=== PATIENT | male | born 1985 | race American Indian/Alaskan Native ===

== ENCOUNTER 2019-12-31 18:34 | Emergency (ER) | payer BC ==
[2019-12-31] MEDS ORDERED: methylPREDNISolone Sod Succinate 125 MG/2 ML INJ ONE (18:37)
[2019-12-31] MEDS ORDERED: EPINEPHrine 1 MG/10 ML SYRINGE ONE (18:38)
[2019-12-31] MEDS ORDERED: FAMOTIDINE 20 MG/2 ML INJ IV ONE ×2 (18:38→18:39)
[2019-12-31] MEDS ORDERED: EPINEPHrine/PF 1 MG/1 ML INJ ONE (18:38)
[2019-12-31] MEDS ORDERED: diphenhydrAMINE 50 MG/ML VIAL ONE (18:39)
[2019-12-31] MEDS ORDERED: EPINEPHrine/PF 1 MG/1 ML INJ SUB-Q ONE ×2 (18:39→19:21)
[2019-12-31] MEDS ORDERED: methylPREDNISolone Sod Succinate 125 MG/2 ML INJ IV ONE (18:39)
[2019-12-31] MEDS ORDERED: diphenhydrAMINE 50 MG/ML VIAL IV ONE (18:39)
--- NOTE | 2019-12-31 18:41 | Emergency Department Report ---
ED General Adult HPI - General Chief complaint: Allergic Reaction Stated complaint: ALLERGIC REACTION PUI?: No Time Seen by Provider: 12/31/19 18:39 Source: patient, RN notes reviewed Mode of arrival: Ambulatory Limitations: No Limitations - History of Present Illness Initial comments: The patient was evaluated in the emergency department for symptoms described in the history of present illness. He/she was evaluated in the context of the global COVID-19 pandemic, which necessitated consideration that the patient might be at risk for infection with the virus that causes COVID-19. Institutional protocols and algorithms that pertain to the evaluation of patients at risk for COVID-19 are in a state of rapid change based on information released by regulatory bodies including the CDC and federal and state organizations. These policies and algorithms were followed during the patient's care in the emergency department. Please note that these policies, procedures and recommendations changed on a rapid basis. Chief complaint: "My tongue is swollen." Mr. Mcdermott is a 34-year-old gentleman who is not known to myself previously. He states he does not have a primary care doctor, and denies chronic medical conditions. He reports he does not take prescription medications. He presents to the ER today with a complaint of possible insect and/or spider bite while in the shower, Just prior to arrival, and suspected allergic reaction. He endorses tongue swelling, diffuse skin itching. This has never happened to him before. He is not taking any medications. He denies headache, neck pain, abdominal pain, vomiting, diaphoresis, exertional shortness of breath, urinary symptoms. While in the emergency room, he developed nonradiating, nonexertional, right- sided reproducible chest wall pain, which does not radiate to the back, arms and neck, increases with palpation, decreases with rest, he denies DVT, pulmonary e mbolism risk factors, I denies a family history of ischemic heart disease, DVT and pulmonary embolism. He was treated with Pepcid, Benadryl, steroids, and subcutaneous epinephrine, which dramatically improved his symptoms. -: Sudden Location: mouth, chest, back Quality: aching Consistency: constant Improves with: medication, rest Worsens with: movement - Related Data Previous Rx's Medication Instructions Recorded Last Taken Type Naproxen [Naprosyn] 500 mg PO BID PRN #20 tablet 11/29/18 Unknown Rx Aspirin [Aspirin BABY CHEW TAB] 81 mg PO QDAY #30 tab.chew 12/31/19 Unknown Rx EPINEPHrine [Epipen 2-Carlos] 0.3 mg IM DAILY PRN #2 ml 12/31/19 Unknown Rx Famotidine [Pepcid] 20 mg PO BID #10 tablet 12/31/19 Unknown Rx Potassium Chloride [K-Dur] 20 meq PO BID #30 tab 12/31/19 Unknown Rx diphenhydrAMINE [Benadryl] 50 mg PO Q8HR PRN #20 capsule 12/31/19 Unknown Rx predniSONE [Deltasone] 40 mg PO QDAY #8 tab 12/31/19 Unknown Rx Allergies Allergy/AdvReac Type Severity Reaction Status Date / Time No Known Allergies Allergy Unverified 11/29/18 20:38 ED Review of Systems ROS: Stated complaint: ALLERGIC REACTION Other details as noted in HPI Constitutional: denies: diaphoresis Eyes: denies: eye discharge ENT: denies: congestion Respiratory: denies: cough Cardiovascular: as per HPI. denies: syncope Gastrointestinal: denies: abdominal pain, nausea, vomiting Genitourinary: as per HPI Musculoskeletal: denies: back pain Skin: rash, lesions, pruritus Hematological/Lymphatic: denies: easy bleeding ED Past Medical Hx - Social History Smoking Status: Current Every Day Smoker Substance Use Type: None - Medications Home Medications: Home Medications Medication Instructions Recorded Confirmed Last Taken Type Naproxen [Naprosyn] 500 mg PO BID PRN #20 tablet 11/29/18 Unknown Rx Aspirin [Aspirin BABY CHEW TAB] 81 mg PO QDAY #30 tab.chew 12/31/19 Unknown Rx EPINEPHrine [Epipen 2-Carlos] 0.3 mg IM DAILY PRN #2 ml 12/31/19 Unknown Rx Famotidine [Pepcid] 20 mg PO BID #10 tablet 12/31/19 Unknown Rx Potassium Chloride [K-Dur] 20 meq PO BID #30 tab 12/31/19 Unknown Rx diphenhydrAMINE [Benadryl] 50 mg PO Q8HR PRN #20 capsule 12/31/19 Unknown Rx predniSONE [Deltasone] 40 mg PO QDAY #8 tab 12/31/19 Unknown Rx ED Physical Exam - General Limitations: No Limitations General appearance: alert, anxious, obese - Head Head exam: Present: atraumatic, normocephalic - Eye Eye exam: Present: normal appearance, EOMI. Absent: nystagmus - ENT ENT exam: Present: normal orophraynx, mucous membranes moist, normal external ear exam, other (Patient speaking in full sentences. There is no stridor or dysphonia. Patient does have a minimally swollen tongue. Patient has minimal hoarseness.There is no stridor. There is no elevation of the base of the tongue.) - Neck Neck exam: Present: normal inspection, full ROM. Absent: tenderness, meningismus - Respiratory Respiratory exam: Present: normal lung sounds bilaterally, chest wall tenderness. Absent: respiratory distress, wheezes, rales, rhonchi, stridor - Cardiovascular Cardiovascular Exam: Present: regular rate, normal rhythm, normal heart sounds. Absent: bradycardia, tachycardia, irregular rhythm, systolic murmur, diastolic murmur, rubs, gallop - GI/Abdominal GI/Abdominal exam: Present: soft, normal bowel sounds. Absent: distended, tenderness, guarding, rebound, rigid, pulsatile mass - Rectal Rectal exam: Present: deferred - Extremities Exam Extremities exam: Present: normal inspection, full ROM, other (2+ pulses noted in the bilateral upper and lower extremities. There is no palpable cord. negative Homans sign. Muscular compartments are soft. The pelvis is stable.). Absent: pedal edema, calf tenderness - Back Exam Back exam: Present: full ROM. Absent: normal inspection (Urticarial lesions noted to the bilateral superior medial aspect of the upper trapezius, and posterior paracervical musculature), tenderness, CVA tenderness (R), CVA tendern ess (L), paraspinal tenderness, vertebral tenderness - Neurological Exam Neurological exam: Present: alert, normal gait, other (No facial droop. Tongue midline. Extraocular movements intact bilaterally. Facial sensation intact to light touch in V1, V2, V3 distribution bilaterally. 5 and a 5 strength in 4 extremities. Sensation intact to light touch in 4 extremities.). Absent: motor sensory deficit - Psychiatric Psychiatric exam: Present: anxious - Skin Skin exam: Present: warm, rash, erythema, urticaria ED Course Vital Signs 12/31/19 12/31/19 12/31/19 19:10 19:15 19:30 Temperature 98.1 F Pulse Rate 90 91 H 83 Respiratory 17 25 H 26 H Rate Blood Pressure 128/93 121/91 121/84 Blood Pressure 128/93 [Left] O2 Sat by Pulse 97 94 96 Oximetry 12/31/19 12/31/19 12/31/19 19:45 20:00 20:15 Temperature Pulse Rate 88 91 H 90 Respiratory 20 17 24 Rate Blood Pressure 124/87 129/86 121/81 Blood Pressure [Left] O2 Sat by Pulse 95 95 93 Oximetry 12/31/19 12/31/19 12/31/19 20:30 20:45 21:00 Temperature Pulse Rate 89 88 92 H Respiratory 20 33 H 27 H Rate Blood Pressure 117/87 130/91 123/84 Blood Pressure [Left] O2 Sat by Pulse 91 94 92 Oximetry 12/31/19 12/31/19 12/31/19 21:15 21:31 21:45 Temperature Pulse Rate 87 87 87 Respiratory 18 14 29 H Rate Blood Pressure 131/88 126/88 128/88 Blood Pressure [Left] O2 Sat by Pulse 95 95 92 Oximetry 12/31/19 22:00 Temperature Pulse Rate 83 Respiratory 26 H Rate Blood Pressure 130/85 Blood Pressure [Left] O2 Sat by Pulse 92 Oximetry - Reevaluation(s) Reevaluation #1: 12/31/19 19:08 Differential diagnosis, including but not limited to: Allergic reaction, urticaria, costochondritis Assessment and plan: 34-year-old gentleman, who is afebrile, with reassuring vital signs, not currently tachypneic, hypoxic, or tachycardic, who denies DVT, pulmonary embolism risk factors, PERC negative, low risk by Wells criteria, presumably low risk for major adverse cardiac event as per heart score, assuming unremarkable EKG and troponin, which we anticipate, presenting with a primary complaint of allergic reaction, urticaria, minimal tongue swelling, and reproducible chest wall pain. Patient has minimal tongue swelling, but is phonating in complete sentences, without stridor, and is protecting his airway. Placed patient on ekg monitor, administer Pepcid, Benadryl, Solu-Medrol, subcutaneous epinephrine. Patient already demonstrating clinical improvement. Patient will remain on ekg monitor, will we will continually reassess. Chest wall pain reproducible. Obtain appropriate laboratory studies, EKG, x-ray of the chest. Plan to observe patient in this department for at least 2 to 4 hours. Ultimate disposition will be determined by patient's clinical response and/or course. Reevaluation #2: 12/31/19 19:21 Feeling somewhat improved. Playing on the cellular phone. Still experiencing minimal tongue swelling. Additional subcutaneous epinephrine ordered. 12/31/19 20:18 Feeling improved. States tongue swelling is improved and diminished. Tongue swelling appears to be improved. Laboratory studies reviewed and appreciated. Patient will be given oral potassium for mild hypokalemia. Reevaluation #3: 12/31/19 21:42 Tongue swelling continues to go down. Saturating at 95, 96% on room air. Repeat EKG unchanged from prior. Patient continues to be quite engaged with his cellular phone. He is not in any acute respiratory distress at this time Reevaluation #4: 12/31/19 22:10 Final reassessment. Saturated 97, 98% on room oxygen. EKG unchanged x2. Troponin negative x2. Patient endorses readiness for discharge. Tongue swelling is significantly improved. ED Medical Decision Making - Lab Data Result diagrams: 12/31/19 18:42 12/31/19 18:42 Vital Signs 12/31/19 19:10 Temperature 98.1 F Pulse Rate 90 Respiratory 17 Rate Blood Pressure 128/93 Blood Pressure 128/93 [Left] O2 Sat by Pulse 97 Oximetry - EKG Data -: EKG Interpreted by Me EKG shows normal: sinus rhythm Rate: normal - EKG Data When compared to previous EKG there are: previous EKG unavailable 12/31/19 19:35 Sinus rhythm, 82 bpm, normal axis, normal intervals, normal ST segments, unremarkable EKG, not a STEMI. - Radiology Data Radiology results: report reviewed, image reviewed interpreted by me: X-ray of the chest, reviewed by myself, negative for acute finding X-ray the chest formally interpreted as negative for acute findings. Critical care attestation.: If time is entered above; I have spent that time in minutes in the direct care of this critically ill patient, excluding procedure time. ED Disposition Clinical Impression: Chest wall pain, Hypokalemia Allergic reaction Qualifiers: Encounter type: initial encounter Qualified Code(s): T78.40XA - Allergy, unspecified, initial encounter Disposition: TO HOME OR SELFCARE Is pt being admited?: No Does the pt Need Aspirin: No Condition: Stable Additional Instructions: We recommend that the patient avoid all contact with insects, spiders, that he follow-up with a primary care doctor or porcelain buildup assistant within the next week for dedicated skin testing to determine what specifically he is allergic/intolerant of. Take the Benadryl every 8 hours as needed/directed, Pepcid twice daily as directed, prednisone daily as directed, use the epinephrine pen only if patient develops inability to speak, inability to breathe, or recurrent tongue swelling. Please follow-up with your primary care doctor or seat pack inspector for chest pain within the next 3 to 4 days. Please return to the emergency room right away with new pain, worsening pain, migration of pain, projectile vomiting, change in mental status, confusion, inability to tolerate liquid feeds, new, worsened or different symptoms not present on the initial emergency room evaluation. Prescriptions: Aspirin [Aspirin BABY CHEW TAB] 81 mg PO QDAY #30 tab.chew diphenhydrAMINE [Benadryl] 50 mg PO Q8HR PRN #20 capsule PRN Reason: Allergic Reaction predniSONE [Deltasone] 40 mg PO QDAY #8 tab EPINEPHrine [Epipen 2-Carlos] 0.3 mg IM DAILY PRN #2 ml PRN Reason: Allergic Reaction Potassium Chloride [K-Dur] 20 meq PO BID #30 tab Famotidine [Pepcid] 20 mg PO BID #10 tablet Referrals: LESTER CHENEY MD [Staff Physician] - 3-5 Days RENE FERRARI MD [Staff Physician] - 3-5 Days Forms: Work/School Release Form(ED)
--- NOTE | 2019-12-31 19:08 | XRay Report ---
CHEST 1 VIEW 1841 INDICATION / CLINICAL INFORMATION: Allergic Reaction COMPARISON: None available. FINDINGS: SUPPORT DEVICES: None HEART / MEDIASTINUM: No significant abnormality. LUNGS / PLEURA: No significant pulmonary or pleural abnormality. No pneumothorax. ADDITIONAL FINDINGS: No significant additional findings. IMPRESSION: No significant acute abnormality Signer Name: Robin Hernandez MD Signed: 12/31/2019 7:04 PM Workstation Name: [id number]
[2019-12-31 19:31] LABS: Hematocrit 42.4 % (35.5-45.6); Hemoglobin 13.7 gm/dl (11.8-15.2); Mean Corpuscular HGB Conc 32 % (32-34); Mean Corpuscular Volume 81 fl (84-94); Platelet Count 216 K/mm3 (140-440); Red Blood Count 5.25 M/mm3 (3.65-5.03); Red Cell Distribution Width 13.4 % (13.2-15.2)
[2019-12-31 19:38] LABS: INR 0.99 (0.87-1.13)
[2019-12-31 19:49] LABS: BUN/Creatinine Ratio 10; Blood Urea Nitrogen 10 mg/dL (9-20); Calcium 9.7 mg/dL (8.4-10.2); Hemolysis Index 22
[2019-12-31] MEDS ORDERED: ACETAMINOPHEN 325 MG TAB PO ONE (19:56)
[2019-12-31] MEDS ORDERED: POTASSIUM CHLORIDE ER 20 MEQ TAB PO ONE (19:56)
[2019-12-31 23:04] VITALS: BP 124/84
== END 2019-12-31 23:15 | disposition home or self-care (01) ==
LOC: ED 18:34
DX: T78.40XA Allergy, unspecified, initial encounter (principal); E87.6 Hypokalemia; R07.89 Other chest pain; F17.200 Nicotine dependence, unspecified, uncomplicated; Z79.899 Other long term (current) drug therapy; X58.XXXA Exposure to other specified factors, initial encounter
CPT/HCPCS: 36415; 71045; 80048; 82550; 83735; 84484; 85027; 85610; 93005; 96372; 96374; 96375; 99284; J0171; J1200; J2930